=== PATIENT | male | born 1980 | race Caucasian/White ===

== ENCOUNTER 2019-05-23 16:04 | Emergency (ER) | payer OTHER, SELFPAY ==
[2019-05-23 16:16] VITALS: BP 142/75; PULSE 77; RESP 16; TEMP 36.4; O2SAT 99
--- NOTE | 2019-05-23 17:16 | ED.GENADULT ---
HPI - General Adult General Chief complaint: Wound/Laceration Stated complaint: FINGER LACERATION Time Seen by Provider: 05/23/19 17:16 Source: patient Mode of arrival: ambulatory Limitations: no limitations History of Present Illness HPI narrative: 39-year-old male patient presents to the [facility] with complaints of a finger laceration to the right ring finger that happened today. Patient states that he is unsure when his last tetanus shot was. Patient states that he was repairing a machine when the wrench slipped and he hit his knuckle on the machine cutting it. Patient states he did rinse it with water did not really clean it at that time. Related Data Allergies Allergy/AdvReac Type Severity Reaction Status Date / Time Penicillins Allergy Intermediate RASH, Verified 05/23/19 16:30 SWELLING Review of Systems Review of Systems: Narrative: CONSTITUTIONAL: Denies fever, chills, or sweats. EYES: Denies visual changes, redness, or discharge. ENT: Denies rhinorrhea, congestion, sore throat, or otalgia. CARDIOVASCULAR: Denies chest pain, palpitations, or edema. RESPIRATORY: Denies cough or dyspnea. GASTROINTESTINAL: Denies abdominal pain, nausea, vomiting, or diarrhea. GENITOURINARY: Denies dysuria or hematuria. SKIN: Denies rash or itching. Positive laceration to right ring finger MUSCULOSKELETAL: Denies back pain, joint pain, or myalgia. NEUROLOGIC: Denies headache, numbness, or weakness. PSYCHIATRIC: Denies anxiety or depression. PMFSH Comments At the time of my signature I agree with nursing past medical history, surgical, social, and family history. There is no relevant family history pertinent to the presenting complaint. Exam Narrative: Exam Narrative: GENERAL: Well-appearing, well-nourished, and in no acute distress. HEAD: Normocephalic, atraumatic. EYES: PERRLA and EOMI. ENT: Nares clear, no rhinorrhea or epistaxis. Mucous membranes moist. NECK: Supple. No lymphadenopathy CHEST: Clear to auscultation. No respiratory distress. HEART: Regular rate and rhythm. No murmur heard. Normal peripheral pulses. ABDOMEN: Soft, nontender, nondistended, normal active bowel sounds. EXTREMITIES: The R hand is without obvious asymmetry or deformity when compared to the L hand. No swelling, erythema, atrophy, or obvious deformity. Patient has approximately 2.5 cm crescent laceration over the right ring finger over the PIP joint. Bleeding is controlled. No obvious foreign body noted. Normal cascade of fingers. Normal flexion and extension of fingers. FDS and FDP intact aganist restistance. No focal fullness, thobbing pain, swelling of fingertip.Pulses and cap refill. SKIN: Warm, dry, no rash. NEURO: No focal deficits. Alert and oriented x3. Course Vital Signs Vital signs: Vital Signs Temperature 36.4 C L 05/23/19 16:16 Pulse Rate 77 05/23/19 16:16 Respiratory Rate 16 05/23/19 16:16 Blood Pressure 142/75 H 05/23/19 16:16 Pulse Oximetry 99 05/23/19 16:16 Temperature 36.4 C L 05/23/19 16:16 Pulse Rate 77 05/23/19 16:16 Respiratory Rate 16 05/23/19 16:16 Blood Pressure 142/75 H 05/23/19 16:16 Pulse Oximetry 99 05/23/19 16:16 Vital signs reviewed The patient has been informed that they may have pre-hypertension or Hypertension based on a BP reading in the department. I recommend that the patient call the primary care provider listed on their discharge instructions or a physician of their choice this week to arrange follow up for further evaluation of possible pre-hypertension or Hypertension Procedures Laceration Laceration 1: Date: 05/23/19 Time: 18:00 Site: upper extremity Side (If applicable): right Size (cm): 2.5 Description: flap and irregular Depth: simple, single layer Local Anesthetic: lidocaine 1% Amount of anesthesia used (mL): 4 Pre-repair: wound explored and irrigated ====== Skin Level ====== Skin layer c
[2019-05-23] MEDS: TETANUS,DIPHTHERIA,AC PERTUSSIS ADULT 0.5 ML (ADACEL) IM (17:25)
== END 2019-05-23 18:02 | disposition home or self-care (01) ==
PROVIDERS: Emergency Provider Nurse Practitioner Family
DX: S61.214A Laceration without foreign body of right ring finger without damage to nail, initial encounter (principal); W22.8XXA Striking against or struck by other objects, initial encounter; Z23 Encounter for immunization
CPT/HCPCS: 12001; 90471; 90715; 99213; G0463

== ENCOUNTER 2022-07-14 00:07 | Day surgery (SDC) | payer OTHER, SELFPAY ==
[2022-07-03 14:57] VITALS: BMI 29.8
--- NOTE | 2022-07-03 15:01 | PC.NURSE ---
Report to the Outpatient Waiting Room, entrance under the green pavilion located off [facility], at time 1000 on date 07/14/22. Planned Procedure Time: 1200. Time changes happen often and if your time is changed the preop area will call you the afternoon before. - You and your visitor will be asked to self-screen and do not enter if you have any COVID symptoms. - Only one visitor is requested with a max of two and NO children visitors are allowed at this time. - The patient visitor may be requested to leave or wait in car when not with patient due to distancing restrictions. - A mask is optional within the hospital at this time. Patients may have clear liquids (water, carbonated beverages, clear teas, apple juice) until 3 hours prior to surgery with a maximum of 20 ounces. - No food from midnight until time of surgery Take the following medications with a SIP of water the morning of surgery: N/A DO NOT STOP ANY OF YOUR OTHER PRESCRIPTION MEDICATIONS PRIOR TO SURGERY EXCEPT THE FOLLOWING Medications to discontinue per physician: N/A Date to take last dose: N/A Please no make-up, nail hebrew, hairspray, perfume, deodorant, or body powder the day of surgery. No jewelry (including any body piercings) or valuables the day of surgery, leave them at home. Please take a shower or bath the night before, or the morning of, surgery with an antibacterial soap. Wear comfortable, loose fitting clothing. - Jewelry must be removed prior to entering the operating room. Rings and piercings that are not removed may be cut off. - The hospital will not accept responsibility for valuables. - Please leave all valuables, including medications, at home the day of surgery. If you are going home after surgery, a licensed bottom hoop driver must drive you home. - NO public transportation without another adult if you receive anesthesia. - We recommend that an adult stay with you for 24 hours following discharge. - We also recommend that you do not drive, make important decision, drink alcoholic beverages, or take any drugs that were not prescribed by your health care provider for at least 24 hours after your discharge time. Follow any additional instructions given to you from your surgeon. If you or anyone in your household have experienced Covid symptoms in the past week, please notify your surgeon or the nurse liaison at the phone number below for possible testing. Telephone instructions given to GIOVANNI HERNANDEZ and asked if any additional questions and then verbalized understanding. Patient advised to call surgeon office or pre surgery nurse liaison [phone] if any additional questions.
[2022-07-14] VITALS (8 sets, daily range): BP systolic 119–153; BP diastolic 60–92; PULSE 62–85; RESP 10–18; TEMP 36.6–36.8; O2SAT 98–100
--- NOTE | 2022-07-14 08:49 | WPDANESEPPF ---
Anes - Initial Pre Proc Eval Procedure: Operation Date: 07/14/22 12:00 Proposed Procedures p Bilateral Vasectomy with Possible Scrotal Exploration - Shawn Bains MD Date/Time: 07/14/22 08:49 Surgeon: Shawn Bains MD Pre Op Diagnosis: desires sterilization Patient Data Age: 42 Gender: M Height: 1.83 m Weight: 99.8 kg Allergies Allergy/AdvReac Type Severity Reaction Status Date / Time Penicillins Allergy Intermediate RASH, Verified 07/14/22 10:45 SWELLING Home Medications Medication Instructions Recorded Confirmed Type No Home Medications 07/03/22 07/03/22 History Patient hx anesthesia problems: none Family hx anesthesia problems: none Results Review: All pre-operative results and documents have been reviewed as part of the pre-operative evaluation. [facility] Past Medical History Medical History (Updated 07/14/22 @ 08:49 by Chris Wright MD) Overweight (BMI 25.0-29.9) Ureterolithiasis Social History Social History Smoking status: Never smoker Alcohol intake: current Drinks per week: 5 Substance use: never Substance use type: does not use Living arrangements: with family Spiritual care concerns: No Anes - Eval Final PreProcedure Day of Procedure 07/14/22 08:49 Patient weight: overweight Heart: regular rate and rhythm Lungs: clear to auscultation and normal air movement Airway: Mallampati scale class II Neurological: alert and oriented Last oral intake: >/= 8 hours ASA classification: II Emergent: no Anesthetic plan: proceed Anesthesia type and monitoring: general LMA Results Review: All pre-operative results and documents have been reviewed as part of the pre-operative evaluation. Informed Consent: The patient's anesthetic plan and its attendant risks and benefits were discussed with the patient/family/POA. Questions were solicited and answers provided to the satisfaction of the patient/family/POA.
[2022-07-14] MEDS: LACTATED RINGERS 1,000 ML 30 ML IV CONT (10:44)
--- NOTE | 2022-07-14 11:54 | WPDHPUPDATE1 ---
History and Physical Update Update Date/Time: 07/14/22 11:54 History and Physical has been reviewed, including an updated exam of the patient. There are NO changes in the patient's condition. Risks, benefits, and alternatives have been discussed and questions answered. Patient agrees to proceed with procedure. Proceed with bilateral vasectomy possible scrotal exploration
[2022-07-14] MEDS: ceFAZolin 2 GM/D5W 50 ML 2 GM/50 ML BAG IVPB (12:05)
[2022-07-14] MEDS: LIDOCAINE HCL 1% LOCAL INJ 20 ML VIAL INFILTRATE (12:14)
--- NOTE | 2022-07-14 12:36 | W.PM.PROC2 ---
Procedure Note - Detailed Date of Procedure 07/14/22 Pre-op Diagnosis desires sterilization Post-op Diagnosis Same Procedure Performed Bilateral vasectomy Surgeon Shawn Bains MD Anesthesia General Description of Procedure Patient is taken to the operative suite correctly identified. Once anesthesia was obtained was prepped draped usual sterile fashion. With him relaxed we were able to actually palpate the was more easily than in the office. The right vas was isolated within my fingers. Incision was made over the midline of the scrotum. The vas was then isolated. A segment was excised with the ends fulgurated ligated and buried. We anesthetized the cord using 1% lidocaine. Similar procedure was done on the left side. Skin was then closed using 3-0 chromic in an interrupted fashion. Patient tolerated procedure well without any complications and was taken recovery stable condition. Please send a copy of op note to my office Estimated Blood Loss 0 Drains No Packing No Pathology Yes Complications No immediate complications Condition Stable Disposition PACU
== END 2022-07-14 14:30 | disposition home or self-care (01) ==
PROVIDERS: PCP Nurse Practitioner Family; Visit Provider Urology
PROC: (CPT 55250; principal; 2022-07-14 12:00)
DX: Z30.2 Encounter for sterilization (principal)
CPT/HCPCS: 55250; 88300; A9270; J0690; J1100; J2250; J2405; J2704; J3010; J7120

== ENCOUNTER 2024-09-26 18:50 | Emergency (ER) | payer OTHER, SELFPAY ==
[2024-09-26 18:58] VITALS: BP 161/91; PULSE 94; RESP 16; TEMP 37.1; O2SAT 98
[2024-09-26 19:14] LABS: EDSTREPNEGPOS1 Negative (Negative)
[2024-09-26] MEDS: dexAMETHasone 10 MG/10 ML INTENSOL CONC (*BKC) PO (19:28)
--- NOTE | 2024-09-26 19:41 | ED.URI ---
HPI - URI/Sore Throat General Chief Complaint: Upper Respiratory Infection Stated Complaint: sore throat Time Seen by Provider: 09/26/24 19:15 Source: patient and RN notes reviewed Mode of arrival: ambulatory Limitations: no limitations History of Present Illness HPI Narrative: 44-year-old male presents [facility] complaining of sore throat for last 3-4 days. Patient reports sore throat, body aches, chills. Patient denies any other upper respiratory symptoms or cough, chest pain, shortness of breath, nausea, vomiting, diarrhea, or any other symptoms. Patient has been taking Tylenol and [id number] cold and flu medication with some relief. Patient denies any significant past medical history. Related Data Home Medications ?Medication ?Instructions ?Recorded ?Confirmed ?Last Taken ?Type No Home Medications 07/03/22 09/26/24 Unknown History Allergies Allergy/AdvReac Type Severity Reaction Status Date / Time Penicillins Allergy Intermediate RASH, Verified 09/26/24 18:53 SWELLING Review of Systems Review of Systems: CONSTITUTIONAL: Denies fever, or sweats. Positive for body aches and chills. EYES: Denies visual changes, redness, or discharge. ENT: Negative for for rhinorrhea, congestion, difficulty swallowing, difficulty clearing secretions, or otalgia. Positive for sore throat CARDIOVASCULAR: Denies chest pain, palpitations, or edema. RESPIRATORY: Negative for cough, dyspnea, wheezing. GASTROINTESTINAL: Denies abdominal pain, nausea, vomiting, or diarrhea. GENITOURINARY: Denies dysuria or hematuria. SKIN: Denies rash or itching. MUSCULOSKELETAL: Denies back pain, joint pain, or myalgia. NEUROLOGIC: Denies headache, numbness, or weakness. PSYCHIATRIC: Denies anxiety or depression. All other systems reviewed are negative, except as documented in HPI. [facility] Past Medical History Medical History Ureterolithiasis Overweight (BMI 25.0-29.9) Social History Social History Smoking status: Never smoker Alcohol intake: current Drinks per week: 5 Substance use: never Substance use type: does not use Living arrangements: with family Spiritual care concerns: No Comments At the time of my signature, I reviewed and agree with the nursing past medical, surgical, social, and family history. There is no relevant family history pertinent to the patient complaint. Exam Narrative: GENERAL: This is a well-nourished, well-developed adult, in no apparent distress. They are non ill-appearing, nontoxic appearing. HEAD: normocephalic, atraumatic. EYES: Sclera clear/white. Vision is grossly intact. Conjunctiva normal bilaterally. Extraocular movements intact. EARS: External ears normal, auditory canals clear and without drainage, TMs without erythema or perforation. Hearing grossly intact. NOSE: External nose normal with no obvious nasal discharge, nasal turbinates I redness or swelling, no rhinorrhea. THROAT: Mucous membranes moist, posterior pharynx erythematous without exudate. Uvula is midline. Tonsils 3+ erythematous without exudate. NECK: Neck supple, mild tender cervical lymphadenopathy, no masses or thyromegaly. CARDIOVASCULAR: Regular rate and rhythm without murmurs, gallops, or rubs. RESPIRATORY: Clear to auscultation. Breath sounds equal bilaterally. No wheezes, rales, or rhonchi. Respiratory rate normal, respiratory effort nonlabored, no respiratory distress SKIN: warm, Dry, intact with no suspicious lesions or rash, good texture and turgor. NEURO: awake, alert, and oriented to person, place and time. There were no obvious focal neurologic abnormalities. EXTREMITIES: No joint tenderness, effusion, or edema noted. BACK: Nontender without deformity. Course Course Emergency Course: Portions of this record may have been created with voice recognition software Level of Care: Express Care Visit Vital Signs Vital signs: Vital Signs Temperature 98.7 F 09/26/24 18:58 Pulse Rate 94 09/26/24 18:58 Respiratory Rate 16 09/26/24 18:58 Blood Pressure 161/91 H 09/26/24 18:58 Pulse Oximetry 98 09/26/24 18:58 Oxygen Delivery Room Air 09/26/24 18:58 Temperature 98.7 F 09/26/24 18:58 Pulse Rate 94 09/26/24 18:58 Respiratory Rate 16 09/26/24 18:58 Blood Pressure 161/91 H 09/26/24 18:58 Pulse Oximetry 98 09/26/24 18:58 Oxygen Delivery Room Air 09/26/24 18:58 MDM - URI/Sore Throat MDM Narrative Medical decision making narrative: Rapid strep negative. Throat culture pending. Likely viral pharyngitis. Given the swelling patient's tonsils, will give patient 1 time dose of dexamethasone. Discussed physical exam findings. Advised supportive measures and signs/symptoms to go to the ER. Pt is appropriate for outpt treatment and f/u. Differential Diagnosis Differential diagnosis: Likely upper respiratory infection, viral infection and pharyngitis Lab Data Attestation: I reviewed the patient's lab results. Labs: Lab Results 09/26/24 Range/Units 19:00 POC Grp A Strep Screen Negative (Negative) Discharge Plan Discharge Clinical Impression: Viral pharyngitis Patient Disposition: Home Condition: Stable Instructions: Pharyngitis (ED) Additional Instructions: Your rapid strep swab was negative today at [facility]. You will be notified in a few days if the culture comes back positive for strep, and appropriate antibiotics will be called in for you at that time. You were given given a dose of dexamethasone to help with your tonsil swelling. Your symptoms are likely due to a viral illness, which is not treated with antibiotics. Viral symptoms can be present for up to 7-14 days. Take Tylenol or ibuprofen for fever or pain. You may also use throat lozenges, salt water gargle rinses, or peppermint tea to help soothe your throat. Rest and stay hydrated. Follow up with your PCP in 3-5 days if symptoms are not improving. Go to the ER immediately if you develop difficulty breathing or swallowing Patient Language: Mauritian Prescriptions: No Action No Home Medications Follow-up/Referrals: PHYSICIAN,[employer] [employer] [facility] [employer] [Primary Care Provider] - Time of Disposition: 19:25
== END 2024-09-26 19:30 | disposition home or self-care (01) ==
DX: J02.8 Acute pharyngitis due to other specified organisms (principal)
CPT/HCPCS: 87081; 87880; 99213; G0463; J8540